=== PATIENT | male | born 1995 | race Caucasian/White ===

== ENCOUNTER 2017-05-08 19:16 | Emergency (ER) | payer SELFPAY ==
[~2017-05-08] VITALS: Ht 177.8 cm; Wt 85.0 kg
[2017-05-08 19:29] VITALS: BP 138/76; PULSE 120; RESP 16; TEMP 97.9; O2SAT 99
[2017-05-09 00:58] VITALS: BP 100/52; PULSE 77; RESP 20; O2SAT 100
--- NOTE | 2017-05-09 01:45 | PD ---
HPI Chief Complaint: OD/ Ingestion Time Seen by Provider: 01:37 Travel History International Travel<30 days: No Contact w/Intl Traveler<30days: No Traveled to known affect area: No History of Present Illness HPI 21-year-old male was brought in by EMS after patient was found unresponsive. Patient reportedly ingested K2 tonight. Patient was found unresponsive initially and then GCS was 15 upon arrival. Patient is drowsy however answer questions appropriately. Patient denies any other illicit drug abuse. Patient denies any alcohol abuse. Patient denies any headache. Patient denies any chest pain or short as of breath. Patient denies abdominal pain. Patient denies any focal weakness or numbness of extremity. PFSH Past Medical History Medical History: Denies Significant Hx Diminished Hearing: No Tetanus Vaccination: Unknown Influenza Vaccination: No Past Surgical History Surgical History: No Previous Surgery Social History Alcohol Use: Yes Tobacco Use: Yes Substance Use: Yes (K2 "BUG SPRAY" PER PT) Allergies-Medications (Allergen,Severity, Reaction): Coded Allergies: No Known Allergies (Unverified , 05/08/17) Reported Meds & Prescriptions Reported Meds & Active Scripts Active No Active Prescriptions or Reported Medications Review of Systems General / Constitutional: No: Fever Eyes: No: Visual changes HENT: No: Headaches Cardiovascular: No: Chest Pain or Discomfort Respiratory: No: Shortness of Breath Gastrointestinal: No: Abdominal Pain Genitourinary: No: Dysuria Musculoskeletal: No: Pain Skin: No Rash Neurologic: No: Weakness Psychiatric: No: Depression Endocrine: No: Polydipsia Hematologic/Lymphatic: No: Easy Bruising Physical Exam Narrative GENERAL: Well-nourished, well-developed patient. SKIN: Focused skin assessment warm/dry. HEAD: Normocephalic. EYES: No scleral icterus. No injection or drainage. NECK: Supple, trachea midline. No JVD or lymphadenopathy. CARDIOVASCULAR: Regular rate and rhythm without murmurs, gallops, or rubs. RESPIRATORY: Breath sounds equal bilaterally. No accessory muscle use. GASTROINTESTINAL: Abdomen soft, non-tender, nondistended. MUSCULOSKELETAL: No cyanosis, or edema. BACK: Nontender without obvious deformity. No CVA tenderness. Neurologic exam: Patient's lethargic however and she'll question appropriately. Patient moves all extremity well. No obvious focal neurological deficit. Data Data Last Documented VS Vital Signs Date Time Temp Pulse Resp B/P (MAP) Pulse Ox O2 Delivery O2 Flow Rate FiO2 05/09/17 00:58 77 20 100/52 (68) 100 Room Air 05/08/17 19:29 97.9 MDM Medical Decision Making Medical Screen Exam Complete: Yes Emergency Medical Condition: Yes Differential Diagnosis Differential diagnosis including drug overdose, electrolyte imbalance, TIA, CVA. Narrative Course 31-year-old male was found unresponsive however GCS 15 upon arrival. Patient admitted to [address] Diagnosis Primary Impression: Drug overdose Qualified Codes: T50.901A - Poisoning by unspecified drugs, medicaments and biological substances, accidental (unintentional), initial encounter Patient Instructions: General Instructions Additional Instructions: Advised [facility]. Med/Other Pt SpecificInfo: No Meds Exist/No RX given Scripts No Active Prescriptions or Reported Meds Disposition: DISCHARGE HOME Condition: Stable Amrit Fernández MD May 09, 2017 01:45
== END 2017-05-09 03:31 | disposition home or self-care (01) ==
LOC: NEPC 19:16
DX: T40.7X1A Poisoning by cannabis (derivatives), accidental (unintentional), initial encounter (principal); Z72.0 Tobacco use
CPT/HCPCS: 99283

== ENCOUNTER 2017-05-15 03:59 | Emergency (ER) | payer OTHER ==
--- NOTE | 2017-05-15 04:08 | PD ---
HPI Chief Complaint: Dodson act Time Seen by Provider: 04:06 Travel History International Travel<30 days: No Contact w/Intl Traveler<30days: No Traveled to known affect area: No History of Present Illness HPI 21-year-old male brought in by PD under Dodson act. According to the Dodson act the patient advised that he wanted to commit suicide. He said that he wanted to jump off a moraima or offered bridge in an attempt to kill himself. He also advised that he would walk into traffic to attempt suicide. The patient admits to using IV methamphetamines. He denies any toxic ingestions. No physical complaints. Reported history of bipolar disorder, schizophrenia, PTSD. PFSH Past Medical History Diminished Hearing: No Social History Alcohol Use: Yes Tobacco Use: Yes Substance Use: Yes (K2 "BUG SPRAY" PER PT) Allergies-Medications (Allergen,Severity, Reaction): Coded Allergies: No Known Allergies (Unverified , 05/08/17) Reported Meds & Prescriptions Reported Meds & Active Scripts Active No Active Prescriptions or Reported Medications Review of Systems Except as stated in HPI: all other systems reviewed are Neg Physical Exam Narrative GENERAL: Well-developed, well-nourished, awake, alert, cooperative, no apparent distress. SKIN: Focused skin assessment warm/dry. Tract roberts on bilateral upper extremities. No warmth or erythema or signs of infection. HEAD: Atraumatic. Normocephalic. EYES: Pupils equal and round. No scleral icterus. No injection or drainage. ENT: No nasal bleeding or discharge. Mucous membranes pink and moist. NECK: Trachea midline. No JVD. CARDIOVASCULAR: Regular rate and rhythm. No murmur appreciated. RESPIRATORY: No accessory muscle use. Clear to auscultation. Breath sounds equal bilaterally. GASTROINTESTINAL: Abdomen soft, non-tender, nondistended. MUSCULOSKELETAL: No obvious deformities. No clubbing. No cyanosis. No edema. NEUROLOGICAL: Awake and alert. No obvious cranial nerve deficits. Motor grossly within normal limits. Normal speech. PSYCHIATRIC: Rapid speech. Tangential thoughts. Data Data Last Documented VS Vital Signs Date Time Temp Pulse Resp B/P (MAP) Pulse Ox O2 Delivery O2 Flow Rate FiO2 05/15/17 04:12 98.0 80 18 141/82 (101) 99 Orders Orders Complete Blood Count With Diff (05/15/17 04:06) Comprehensive Metabolic Panel (05/15/17 04:06) Psych Screen (05/15/17 04:06) Drug Screen, Random Urine (05/15/17 04:06) Alcohol (Ethanol) (05/15/17 04:06) Salicylates (Aspirin) (05/15/17 04:06) Tylenol (Acetaminophen) (05/15/17 04:06) Labs Laboratory Tests Test 05/15/17 04:09 White Blood Count 7.8 TH/MM3 Red Blood Count 4.83 MIL/MM3 Hemoglobin 15.5 GM/DL Hematocrit 44.4 % Mean Corpuscular Volume 91.9 FL Mean Corpuscular Hemoglobin 32.2 PG Mean Corpuscular Hemoglobin Concent 35.0 % Red Cell Distribution Width 13.2 % Platelet Count 261 TH/MM3 Mean Platelet Volume 8.3 FL Neutrophils (%) (Auto) 59.6 % Lymphocytes (%) (Auto) 25.8 % Monocytes (%) (Auto) 10.0 % Eosinophils (%) (Auto) 4.3 % Basophils (%) (Auto) 0.3 % Neutrophils # (Auto) 4.7 TH/MM3 Lymphocytes # (Auto) 2.0 TH/MM3 Monocytes # (Auto) 0.8 TH/MM3 Eosinophils # (Auto) 0.3 TH/MM3 Basophils # (Auto) 0.0 TH/MM3 CBC Comment DIFF FINAL Differential Comment Blood Urea Nitrogen 16 MG/DL Creatinine 0.86 MG/DL Random Glucose 87 MG/DL Total Protein 8.3 GM/DL Albumin 4.3 GM/DL Calcium Level 9.1 MG/DL Alkaline Phosphatase 72 U/L Aspartate Amino Transf (AST/SGOT) 62 U/L Alanine Aminotransferase (ALT/SGPT) 109 U/L Total Bilirubin 0.5 MG/DL Sodium Level 138 MEQ/L Potassium Level 3.9 MEQ/L Chloride Level 103 MEQ/L Carbon Dioxide Level 27.5 MEQ/L Anion Gap 8 MEQ/L Estimat Glomerular Filtration Rate 110 ML/MIN Salicylates Level 3.5 MG/DL Acetaminophen Level LESS THAN 2.0 MCG/ML Ethyl Alcohol Level LESS THAN 3 MG/DL MDM Medical Decision Making Medical Screen Exam Complete: Yes Emergency Medical Condition: Yes Differential Diagnosis Suicidal ideation, depression, drug induced mood disorder Narrative Course Vital signs reviewed. CBC is unremarkable. CMP is remarkable for AST 62, ALT 109, otherwise unremarkable. Tylenol, salicylates, and alcohol level are negative. The patient is medically cleared for psychiatric evaluation and disposition by them. Diagnosis Primary Impression: Drug-induced mood disorder Admitting Information Admitting Physician Requests: Observation Scripts No Active Prescriptions or Reported Meds Clarence Walters MD May 15, 2017 04:08
[2017-05-15 04:12] VITALS: BP 141/82; PULSE 80; RESP 18; TEMP 98; O2SAT 99
[2017-05-15 04:16] LABS: AUTOMATED NEUTROPHIL # 4.7 TH/MM3 (1.8-7.7); BASOPHIL % 0.3 % (0.0-2.0); EOSINOPHIL # 0.3 TH/MM3 (0-0.4); EOSINOPHIL % 4.3 % (0.0-4.0); HEMATOCRIT 44.4 % (39.0-51.0); HEMO FLAGS DIFF FINAL; LYMPH % 25.8 % (9.0-44.0); MEAN CELL VOLUME 91.9 FL (80.0-100.0); MEAN CORPUSCULAR HEMOGLOBIN 32.2 PG (27.0-34.0); NEUT % 59.6 % (16.0-70.0); PLATELET COUNT 261 TH/MM3 (150-450); RED BLOOD COUNT 4.83 MIL/MM3 (4.50-5.90); RED CELL DISTRIBUTION WIDTH 13.2 % (11.6-17.2); WHITE BLOOD COUNT 7.8 TH/MM3 (4.0-11.0)
[2017-05-15 05:08] LABS: ALT (GPT) 109 U/L (12-78); ANION GAP 8 MEQ/L (5-15); AST (GOT) 62 U/L (15-37); BICARBONATE 27.5 MEQ/L (21.0-32.0); BLOOD UREA NITROGEN 16 MG/DL (7-18); CHLORIDE 103 MEQ/L (98-107); GLOMERULAR FILTRATION RATE 110 ML/MIN (>89); POTASSIUM 3.9 MEQ/L (3.5-5.1); SODIUM (NA) 138 MEQ/L (136-145)
[2017-05-15 05:11] LABS: ALKALINE PHOSPHATASE 72 U/L (45-117); TOTAL BILIRUBIN ADULT 0.5 MG/DL (0.2-1.0)
[2017-05-15 05:15] LABS: ACETAMINOPHEN LESS THAN 2.0 MCG/ML (10.0-30.0); ALCOHOL LESS THAN 3 MG/DL (0-5)
[2017-05-15 12:40] VITALS: BP 126/58; PULSE 83; RESP 15; O2SAT 99
[2017-05-15] MEDS ORDERED: NICOTINE 14 MG/24 HR PATCH T-DERMAL ONE (19:15)
[2017-05-16 06:40] VITALS: BP 95/56; PULSE 69; RESP 18
[2017-05-16 10:15] VITALS: BP 110/60; PULSE 76; RESP 18; O2SAT 100
--- NOTE | 2017-05-16 12:38 | PD ---
History of Present Illness Chief Complaint: Psychiatric Symptoms Time Seen by Provider: 12:15 Travel History International Travel<30 Days: No Contact w/Intl Traveler<30days: No Known affected area: No Legal Status Legal Status: Dodson Act Dodson Act Signed By: Ann Alaniz History of Present Illness: History of Present Illness HPI 21-year-old male with history of substance abuse as well as reported history of depression, attention deficit disorder who is brought in by PD under Dodson act. According to the Dodson act the patient advised that he wanted to commit suicide. He said that he wanted to jump off a moraim[place] or a bridge in an attempt to kill himself. He also advised that he would walk into traffic to attempt suicide. The patient admits to using IV methamphetamines. . Patient seen. EMR reviewed. Current toxicology is positive for amphetamines as well as cocaine. The patient was monitored in secure environment and he presented no suicidality. He is alert, and oriented male with poor hygiene. He is only minimally cooperative. He does not appear to be internally stimulated. Does not present any significant objective clinical symptoms of depression. He is demanding to stay here in the hospital because he is tired of "walking around". He also states that he needs to be in a program to get his medication. Reports his medication being Depakote, Adderall, and Vistaril. He also reports that he was prescribed Xanax to take on an as-needed basis. Apparently the patient is homeless. He states that he came into [place] 1 -1/2 months ago because he was living in [place] and" the winter is coming admits hard to stay out there in the cold" patient did not report any suicidality until a discussion is made regarding possible discharge to outpatient treatment. He then threatens that he will go out and he will bang his head or get into any other situations so that he will have to be brought back to the emergency department. In terms of substance abuse he becomes very defensive when the subject is brought up. He states that" methamphetamine is the same as Adderall and so he sees that it is not a problem for me to use it ". [facility] Past Medical History Medical History: Denies Significant Hx Diminished Hearing: No Tetanus Vaccination: Unknown Influenza Vaccination: No Past Surgical History Surgical History: No Previous Surgery Psychiatric History Psychiatric History Hx Psychiatric Treatment: REPORTS HISTORY OF SUICIDE ATTEMPT WITH AN ADMISSION FOR 46 DAYS IN [facility]. Reports 2 previous psychiatric hospitalizations in [facility] as well. History of Inpatient Treatment: Yes Guns or firearms in home: No Social History Single, homeless male. 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 He had been on disability but it was terminated due to noncompliance with treatment. Has no family in the area. Hx Alcohol Use: Yes Hx Tobacco Use: Yes (1 PPD) Hx Substance Use: Yes (METH FOR 10 YEARS) Substance Use Type: Crack, Amphetamines-Stimulants Hx of Substance Use Treatment: No Family Psychiatric History Unknown Allergies-Medications (Allergen,Severity, Reaction): Coded Allergies: No Known Allergies (Unverified , 05/08/17) Reported Meds & Prescriptions Reported Meds & Active Scripts Active No Active Prescriptions or Reported Medications Mental Status Examination Appearance: Dirty, Disheveled, Malodorous Consciousness: Alert Orientation: x4 Motor Activity: Normal gait Speech: Unremarkable Language: Adequate Fund of Knowledge: Adequate Attention and Concentration: Adequate Memory: Unremarkable Mood: Appropriate Affect: Appropriate Thought Process & Associations: Intact Thought Content: Appropriate Hallucination Type: None Delusion Type: None MDM Medical Decision Making Medical Record Reviewed: Yes Assessment/Plan 21-year-old male with a reported history of bipolar disorder and a documented history of substance abuse including use of methamphetamine who presents under a Dodson act initiated by law enforcement the Dodson act alleges that the patient contacted law enforcement and advised them that he wanted to commit suicide by either jumping off a moraima or jumping off a bridge. He also reported that he will walk into traffic to attempt suicide. The patient was monitored in [facility] and presented no suicidality. He became threatening that he will jump in front of traffic if he is not kept here in the hospital. He refuses to be discharged as he states that he is homeless and he doesn't want to live on the street. The patient presents significant antisocial personality traits. However due to the fact that he is not well known to us and has the potential to act in an impulsive and reckless manner he will be maintained on [facility] waiting list. Orders Orders Diet Regular Basic (05/15/17 Dinner) Nicotine 14 Mg Patch.24 Hr (Habitrol 14 (05/15/17 19:15) Diet Regular Basic (05/16/17 Breakfast) Diet Regular Basic (05/16/17 Lunch) Results Vital Signs Date Time Temp Pulse Resp B/P (MAP) Pulse Ox O2 Delivery O2 Flow Rate FiO2 05/16/17 10:15 76 18 110/60 (77) 100 Room Air 05/16/17 06:40 69 18 95/56 (69) Room Air 05/15/17 12:40 83 15 126/58 (80) 99 Room Air Diagnosis Primary Impression: Drug-induced mood disorder Prescriptions No Active Prescriptions or Reported Meds Disposition: 65 DISC TO PSYCH CARE FACILITY ([facility]) Breanna Garzon May 16, 2017 12:38
[2017-05-16 12:44] VITALS: BP 110/60; PULSE 76; RESP 18; O2SAT 100
== END 2017-05-16 13:45 ==
LOC: NEPC 03:59 → NEPJ 05-16 13:45
DX: F19.94 Other psychoactive substance use, unspecified with psychoactive substance-induced mood disorder (principal); F31.9 Bipolar disorder, unspecified; F90.9 Attention-deficit hyperactivity disorder, unspecified type; F20.9 Schizophrenia, unspecified; F17.200 Nicotine dependence, unspecified, uncomplicated; Z59.0 Homelessness
CPT/HCPCS: 80053; 80307; 85025; 99285